=== PATIENT | male | born 1950 | race Caucasian/White ===

== ENCOUNTER 2022-05-21 19:53 | Emergency (ER) | payer MEDICARE ==
[2022-05-21] VITALS (11 sets, daily range): BP systolic 96–135; BP diastolic 50–70
[2022-05-21] MEDS ORDERED: DSS100 MG PO (20:30)
[2022-05-21] MEDS ORDERED: LORATADINE10 M1 PO (20:31)
[2022-05-21] MEDS ORDERED: FAMOTIDINE20 M1 PO (20:31)
[2022-05-21] MEDS ORDERED: D350 MCG (20:31)
[2022-05-21] MEDS ORDERED: AMOXICILLIN500 MG PO (20:32)
[2022-05-21] MEDS ORDERED: ENVARSUS XR0.75 MG PO (20:32)
[2022-05-21] MEDS ORDERED: ACETAMINOP160 MG/5 M PO (20:33)
[2022-05-21] MEDS ORDERED: ARNUITY EL50 MCG/ACT (20:34)
[2022-05-21] MEDS ORDERED: LANTUS100 UNIT SC (20:35)
[2022-05-21] MEDS ORDERED: PREDNISONE5 MG PO (20:36)
[2022-05-21] MEDS ORDERED: [UNRECOGNIZED DRUG - OTHER] PO (20:36)
[2022-05-21] MEDS ORDERED: MERIBIN5 MG PO (20:37)
[2022-05-21 21:20] LABS: BASO% 0.5 % (0-3); HEMATOCRIT 43.8 % (39.0-50.0); HEMOGLOBIN 14.2 g/dl (14.0-18.0); IMMATURE GRANULOCYTES 1.6 % (0.0-5.0); LYMPH% 21.3 % (15-41); MEAN CELL VOLUME 97.1 fL CALC (80.0-100.0); MEAN CORPUSCULAR HGB 31.5 pG CALC (26.0-32.0); MEAN CORPUSCULAR HGB CONC 32.4 g/dL CAL (32.0-36.0); MONO% 15.1 % (2-13); NEUT# 2.33 thou/uL (1.82-7.42); NEUT% 60.5 % (42-76); RED BLOOD COUNT 4.51 mill/uL (4.70-6.10); RED CELL DISTRI WIDTH 14.4 % (11.5-15.5)
[2022-05-21 21:21] LABS: URINE BILIRUBIN - DIPSTICK NEGATIVE (NEGATIVE); URINE BLOOD DIPSTICK SMALL (NEGATIVE); URINE COLOR YELLOW; URINE GLUCOSE - DIPSTICK NEGATIVE (NEGATIVE); URINE KETONE NEGATIVE (NEGATIVE); URINE LEUK ESTERASE NEGATIVE (NEGATIVE); URINE PH 5.5 (4.5-8.0); URINE PROTEIN - DIPSTICK TRACE mg/dL (NEG-TRACE); URINE UROBILINOGEN - DIPSTICK 0.2 E.U./dL (0.2)
[2022-05-21 21:30] LABS: URINE NITRITE - DIPSTICK NEGATIVE (Negative); URINE RBC 0-2 RBC/hpf (0-5)
[2022-05-21 21:34] LABS: ALBUMIN 4.2 g/dL (3.2-5.0); ALKALINE PHOSPHATASE 69 u/l (38-126); ANION GAP 12 (6-22 (CALC)); BUN 12 mg/dL (8-23); BUN/CREATININE RATIO 10 (12-20 (CALC)); CARBON DIOXIDE 26 mmol/l (22-30); CHLORIDE 96 mmol/l (95-108); CREATININE 1.2 mg/dL (0.7-1.3); GFR FOR AFR.AMER. > 60 ML/MIN (>=60 (CALC)); GFR OTHER RACES 60 ML/MIN (>=60 (CALC)); POTASSIUM 4.6 mmol/l (3.5-5.1); SGOT/AST 103 u/l (19-48); SODIUM 129 mmol/l (137-146)
[2022-05-22] VITALS: BP 115/66
[2022-05-22 00:31] VITALS: BP 115/66
--- NOTE | 2022-05-24 17:13 | NUR ---
PRELIMINARY BLOOD CULTURE CALLED TO 02/24 GROWING GRAM (+) COCCI. NO NEW ORDERS AT THIS TIME
== END 2022-05-22 00:45 | disposition home or self-care (01) ==
LOC: ED 19:53
PROVIDERS: Emergency Medicine
DX: B34.9 Viral infection, unspecified (principal); I10 Essential (primary) hypertension; Z94.0 Kidney transplant status; Z79.84 Long term (current) use of oral hypoglycemic drugs; Z79.52 Long term (current) use of systemic steroids; Z20.822 Contact with and (suspected) exposure to COVID-19

== ENCOUNTER 2022-05-22 15:11 | Emergency (ER) | payer MEDICARE ==
[2022-05-22] VITALS (8 sets, daily range): BP systolic 105–146; BP diastolic 62–83
[~2022-05-22] VITALS: Ht 175.3 cm; Wt 102.0 kg
[~2022-05-22 15:11] MED LIST: ACETAMINOP160 MG/5 M PO; AMOXICILLIN500 MG PO; ARNUITY EL50 MCG/ACT; D350 MCG; DSS100 MG PO; ENVARSUS XR0.75 MG PO; FAMOTIDINE20 M1 PO; LANTUS100 UNIT SC; LORATADINE10 M1 PO; MERIBIN5 MG PO; PREDNISONE5 MG PO; [UNRECOGNIZED DRUG - OTHER] PO
[2022-05-22 17:10] LABS: BASO% 0.6 % (0-3); EOS% 0.3 % (0-8); HEMATOCRIT 45.7 % (39.0-50.0); HEMOGLOBIN 14.7 g/dl (14.0-18.0); IMMATURE GRANULOCYTES 2.4 % (0.0-5.0); LYMPH% 19.9 % (15-41); MEAN CELL VOLUME 99.6 fL CALC (80.0-100.0); MEAN CORPUSCULAR HGB CONC 32.2 g/dL CAL (32.0-36.0); MONO% 12.5 % (2-13); NEUT# 2.16 thou/uL (1.82-7.42); NEUT% 64.3 % (42-76); RED BLOOD COUNT 4.59 mill/uL (4.70-6.10); RED CELL DISTRI WIDTH 14.6 % (11.5-15.5)
[2022-05-22 17:17] LABS: ALKALINE PHOSPHATASE 67 u/l (38-126); ANION GAP 14 (6-22 (CALC)); BILIRUBIN, TOTAL 0.6 mg/dL (0.2-1.3); BUN 13 mg/dL (8-23); BUN/CREATININE RATIO 13 (12-20 (CALC)); CARBON DIOXIDE 23 mmol/l (22-30); CHLORIDE 104 mmol/l (95-108); CREATININE 1.1 mg/dL (0.7-1.3); GFR FOR AFR.AMER. > 60 ML/MIN (>=60 (CALC)); GFR OTHER RACES > 60 ML/MIN (>=60 (CALC)); POTASSIUM 4.8 mmol/l (3.5-5.1); SGOT/AST 87 u/l (19-48); TOTAL PROTEIN 6.8 g/dL (6.3-8.2)
[2022-05-22 17:18] LABS: SODIUM 136 mmol/l (137-146)
== END 2022-05-22 18:36 | disposition home or self-care (01) ==
LOC: ED 15:11
PROVIDERS: Family Medicine
DX: E11.65 Type 2 diabetes mellitus with hyperglycemia (principal); I10 Essential (primary) hypertension; Z94.0 Kidney transplant status; Z79.4 Long term (current) use of insulin